=== PATIENT | male | born 2005 | race Caucasian/White ===

== ENCOUNTER 2025-05-15 12:44 | Emergency (ER) | payer OTHER, SELFPAY ==
[2025-05-15 12:48] VITALS: BP 120/75
--- NOTE | 2025-05-15 13:17 | ED.GENMED ---
History of Present Illness
General
Chief Complaint: Fever
Source: patient
Exam Limitations: none
Time Seen by Provider: 05/15/25 13:01
History of Present Illness
History of Present Illness:
19-year-old male otherwise healthy presents with onset of fatigue yesterday but had a high fever today. He checked his temperature temporally and his temperature measured 107 degrees. He took 2 Advil and presented here. He notes fatigue slight
cough but denies sore throat or ear pain.
Past History
Past History
ED Past Medical History: None
ED Past Surgical History: None
Social History
Tobacco: Non-smoker
Alcohol: None
Phy Exam
Physical Exam
Physical Exam:
General: Well-appearing male no acute respiratory distress
HEENT normocephalic mucosa dry neck is supple TMs normal
Heart: Regular rate and rhythm
Lungs: Clear no wheeze
Abdomen is soft nontender
Extremities: No cyanosis
Course
Orders/Labs/Results
Orders:
Orders
05/15/25 13:16
0.9% Sodium Chloride 1000 ml [Nss] 1,000 ml IV BOLUS
05/15/25 13:35
Complete Blood Count/With Diff Urgent
Comprehensive Metabolic Panel Urgent
05/15/25 14:59
Acetaminophen [Tylenol] 650 mg .ROUTE .STK-MED ONE
05/15/25 15:02
Acetaminophen [Tylenol] 650 mg PO NOW STA
Abnormal Lab Results
05/15/25
13:35
Absolute Lymphs (auto) 1.0 L 10^3/uL
(1.2-3.4)
Absolute Monos (auto) 1.5 H 10^3/uL
(0.1-0.6)
Lymphocytes % 12.0 L %
(20.5-51.1)
Monocytes % 17.7 H %
(1.7-9.3)
05/15/25 13:35
05/15/25 13:35
Vital Signs
Initial and Last Documented VS:
Initial Vital Signs
Temp Pulse Resp BP Pulse Ox
99.7 F 117 16 120/75 97
05/15/25 12:48 05/15/25 12:48 05/15/25 12:48 05/15/25 12:48 05/15/25 12:48
Last Documented Vital Signs
Temp Pulse Resp BP Pulse Ox
99.7 F 117 16 120/75 97
05/15/25 12:48 05/15/25 12:48 05/15/25 12:48 05/15/25 12:48 05/15/25 13:18
MDM/Problems Addressed
Differential Diagnosis Includes:
Patient with fatigue and high fever. He states he tested positive for COVID this morning. Lungs are clear he does look dry. Will check basic labs and hydrate. He took 2 at after checking his temperature at home the temperature here is 99.7
*Pulse Oximetry
SaO2: 97
Oxygen Mode of Delivery: Room air
Patient hypoxic: no
*Critical Care Note
Total Time (30-74mins, 75-104mins- exclusive of procedures): Not Applicable
Update Note
Update Note:
Labs reviewed without significant finding. Patient hydrated and given Tylenol here. Overall he appears well. He tested positive for COVID this morning. Recommended continued supportive care at home with hydration and fever control
ED Attending Note
-
Portions of this chart may have been created with voice recognition software.� Occasional wrong word or��sound alike� substitutions may have occurred due to the inherent limitations of voice recognition software.
Discharge Plan
Departure
Patient Disposition: Home (Routine Discharge)
Date of Disposition: 05/15/25
Time of Disposition: 15:29
Patient with high blood pressure during this ER visit?: No
Discharge Problem:
COVID-19
Instructions: Viral Syndrome (DC)
Prescriptions:
No Action
cetirizine 10 MG tablet
10 mg PO DAILY
Referrals:
Roverto Aguila DO [Family Provider, Family Practice]
Activity Restrictions/Additional Instructions:
Rest. Stay hydrated. Continue with ibuprofen or Tylenol for fever. Return if worse otherwise follow-up with your doctor
Interventions
Interventions:
*Risk Screen - Suicide Last Done: 05/15/25 12:51
*General Assessment Last Done: 05/15/25 12:48
*Neglect/Abuse Screening Last Done: 05/15/25 12:48
*ED- Fall Risk Assessment Last Done: 05/15/25 13:06
*ED COVID-19 Vaccine History Last Done: 05/15/25 13:06
ED- Neurological Assessment Last Done: 05/15/25 13:05
ED-Skin Assessment Last Done: 05/15/25 13:05
Discharge Date and Time
Print Language: KITTITIAN
[2025-05-15 13:40] LABS: Hematocrit 44.9 % (39.0-52.0); Hemoglobin 16.0 g/dL (13.0-18.0); Mean Corp Hgb Conc. 35.6 g/dL (33.0-37.0); Mean Corpuscular Volume 84.2 fL (80.0-94.0); Nucleated Red Blood Cells % 0 % (-); Platelet Count 203 10^3/uL (130-400); Red Cell Dist. Width 12.3 % (11.5-14.5)
[2025-05-15] MEDS: NSS 1000 IV (13:46)
[2025-05-15 14:05] LABS: ALT (SGPT) 21 U/L (0-50); AST (SGOT) 26 U/L (17-59); Albumin 4.5 g/dl (3.5-5.0); Alkaline Phosphatase 104 U/L (38-126); Blood Urea Nitrogen 17 mg/dl (9-20); Calcium 9.6 mg/dl (8.4-10.2); Carbon Dioxide 26 mmol/L (22-30); Chloride 106 mmol/L (98-107); Glucose 99 mg/dl (70-99); Potassium 3.8 mmol/L (3.5-5.1); Sodium 139 mmol/L (135-145); Total Protein 7.6 g/dl (6.3-8.2); eGFR > 60.00
[2025-05-15] MEDS: TYLENOL 650 MG PO (15:02)
[2025-05-15 15:55] VITALS: BP 100/65
== END 2025-05-15 15:45 | disposition home or self-care (01) ==
LOC: EMR 12:44
PROVIDERS: Physician Assistant; EMERGENCY PHYSICIAN Emergency Medicine; FAMILY PHYSICIAN Family Medicine
DX: U07.1 COVID-19 (principal)
CPT/HCPCS: 99283; 96360; 80053; 85025